=== PATIENT | female | born 1970 | race Caucasian/White ===

== ENCOUNTER → 2022-10-03 15:22 | Outpatient (CLI) | payer OTHER, SELFPAY ==
[2022-10-03 16:22] LABS: COVID19 -Nasal RAPID Negative (Negative)
== END ==
PROVIDERS: PCP Physician Assistant; Visit Provider Surgery
DX: Z20.822 Contact with and (suspected) exposure to COVID-19 (principal); Z01.812 Encounter for preprocedural laboratory examination
CPT/HCPCS: 87635; C9803

== ENCOUNTER 2022-10-04 10:48 | Day surgery (SDC) | payer OTHER, SELFPAY ==
[2022-09-27 13:54] VITALS: BMI 40.3
[2022-10-04] VITALS (9 sets, daily range): BP systolic 100–116; BP diastolic 53–71; PULSE 70–89; RESP 14–22; TEMP 36.1–36.6; O2SAT 91–96; BMI 40.3
[2022-10-04] MEDS: LACTATED RINGERS 1,000 ML 100 ML IV (11:51)
--- NOTE | 2022-10-04 12:20 | PM.HP.1 ---
History of Present Illness History of Present Illness Date Patient Seen: 10/04/22 Time Patient Seen: 12:20 Chief complaint: SDC Narrative: 52-year-old woman with a chronic right breast abscess here for elective right lumpectomy. Please refer to the H& P from August 2022 for further detail. No significant interval changes in health. Patient History Medical History Anxiety Asthma Depression Hypertension Hypertrophic obstructive cardiomyopathy Sinus drainage Suspected sleep apnea Surgical History H/O knee surgery (2020) H/O thumb surgery H/O: History of tonsillectomy Hx of appendectomy (1999) Family & Social History Family History Grandmother Heart disease Stroke Grandmother Breast cancer Social History: household members spouse,children lives independently Yes Tobacco & Substance use: Tobacco type cigarettes Smoking Status Current every day smoker alcohol intake current Substance Use Type does not use Meds Home Medications and Allergies Home Medications Medication Instructions Recorded Confirmed Type furosemide 20 mg tablet 20 mg PO DAILY 09/27/22 10/04/22 History lisinopril 20 mg tablet 20 mg PO DAILY 09/27/22 10/04/22 History metoprolol tartrate 100 mg tablet 100 mg PO DAILY 09/27/22 10/04/22 History trazodone 150 mg tablet 150 mg PO BEDTIME 09/27/22 10/04/22 History Allergies Allergy/AdvReac Type Severity Reaction Status Date / Time No Known Drug Allergies Allergy Unverified 08/29/22 14:09 Exam Vital Signs (past 8 hours): - 10/04/22 11:23 Temperature 97.8 F Pulse Rate 81 Respiratory Rate 16 Blood Pressure 102/67 Pulse Oximetry 96 Oxygen Delivery Method Room Air Oxygen Delivery Method Room Air Narrative Exam Narrative: General adult woman alert oriented no acute distress Chest nonlabored respiration Chest right breast marked with my initials Assessment & Plan Assessment and plan (1) Abscess of right breast: Status: Acute Assessment & Plan narrative: 52-year-old woman with a chronic right breast abscess here for elective incision and drainage. Overview of the operation was again discussed with the patient at the bedside. Operative risks including bleeding, infection, need for further treatment or procedure dependent on pathology findings were discussed. Questions have been answered she is in agreement with this plan Time Spent With Patient Critical Care time: I spent a total of [] minutes of critical care time on this patient's care today; this time is exclusive of procedural time.
[2022-10-04] MEDS: CEFAZOLIN 2 GM/100 ML PREMIX 100 ML IV (12:40)
[2022-10-04] MEDS: BUPIVACAINE 0.5% W/ EPI (PF) 30 ML VIAL INJ (12:50)
--- NOTE | 2022-10-04 12:51 | SUR.OPER ---
Supine on padded OR bed, head on pillow, arms secured on padded arm boards at <90 degrees abduction, legs uncrossed, safety belt at thigh
--- NOTE | 2022-10-04 13:19 | PM.OP.1 ---
Operative Date/Time/Diagnoses Date of procedure: 10/04/22 Time of procedure: 13:19 Pre-op diagnosis: Right breast abscess Post-op diagnosis: same Procedure & Clinicians Procedure: Incision and drainage of right breast abscess Same procedure as scheduled: Yes Indications: 16 years of intermittent right breast abscess status post multiple ultrasound-guided aspiration Surgeon: Kayden Shankar Click Yes if Unassisted: Yes Anesthesia Type: General Operative Notes Findings: Fistula tract connecting the 9 and 3:00 o'clock. positions of the right breast Specimen(s): other (Right breast abscess) Estimated Blood Loss (mL): 5 Procedure in detail: Patient was brought to the operating room placed supine on the table. Bilateral lower extremity compression devices were applied. General anesthesia was induced she was intubated with an LMA. She was prepped and draped in sterile fashion. She received Ancef prior to skin incision. A lacrimal probe was inserted through a punctate opening 9:00 o'clock position on the right breast. The end of the lacrimal probe was beneath the skin at the 3 o'clock position. Incision was made over the end of the lacrimal probe and the subcutaneous tissue was divided. Using blunt dissection the abscess cavity was explored and loculations broken. There was a scant amount of purulent fluid which was sent for culture. A [place] drain was then placed through the incisions and secured to itself. The skin was then reapproximated using interrupted nylon suture at the 3 o'clock position. Patient tolerated procedure well. The wound was irrigated and then covered with sterile dressings patient was extubated and transferred to recovery room in stable condition. Complications: none Post-operative Condition: stable Disposition: same day surgery
--- NOTE | 2022-10-04 14:03 | SUR.PHASEII ---
Spoke to Dr Del Cid in OR#2. Informed that patient continues to complain of significant burning pain to right breast. See new orders
[2022-10-04] MEDS: KETOROLAC 30 MG/ML VIAL IV (14:12)
[2022-10-04] MEDS: ACETAMINOPHEN 325 MG TABLET 975 MG PO (14:15)
[2022-10-04] MEDS: OXYCODONE IR 5 MG TABLET PO (14:15)
== END 2022-10-04 14:51 | disposition home or self-care (01) ==
PROVIDERS: PCP Physician Assistant; Referring Provider Surgery; Visit Provider Surgery
PROC: (CPT 10060; principal; 2022-10-04 12:30)
DX: N61.1 Abscess of the breast and nipple (principal)
CPT/HCPCS: 10060; 19020; 82962; 87070; 87075; 87205; J0690; J1100; J1170; J1885; J2250; J2405; J2704; J3010

== ENCOUNTER 2025-09-11 09:37 | Emergency (ER) | payer OTHER, SELFPAY ==
[2025-09-11] VITALS (17 sets, daily range): BP systolic 100–130; BP diastolic 54–63; PULSE 72–100; RESP 13–24; TEMP 36.7; O2SAT 92–98; BMI 37.6
--- NOTE | 2025-09-11 09:49 | ED_ITS ---
HPI - Neuro Symptoms/Deficit General Chief Complaint: Neuro Symptoms/Deficit Stated Complaint: Sudden vision loss in rt eye Time Seen by Provider: 09/11/25 09:42 History of Present Illness HPI Narrative: Patient is a 55-year-old female history of congestive heart failure, hypertension former smoker quit 01/21/2025 presenting today with sudden onset of right visual loss. She reports that she lost her vision yesterday. She thought it would get better however she woke up this morning and still can not see out of her right eye. She does have ongoing floaters which is normal for her but yesterday she noticed her floaters went away. She has 1 area where she can see out of her right eye but really it is black. No numbness tingling or weakness Related Data Home Medications ?Medication ?Instructions ?Recorded ?Confirmed furosemide 20 mg tablet 20 mg PO DAILY 09/27/2201/19 lisinopril 20 mg tablet 20 mg PO DAILY 09/27/2201/19 metoprolol tartrate 100 mg tablet 100 mg PO DAILY 08/3101/30/23 trazodone 150 mg tablet 150 mg PO BEDTIME 09/27/22 0 01/30/23 Previous Rx's ?Medication ?Instructions ?Recorded acetaminophen 325 mg capsule 650 mg (2 x 325 mg) PO QI D PRN 10/04/22 (Tylenol) pain #60 caps ibuprofen 200 mg tablet 400 mg (2 x 200 mg) PO Q6H # 60 tabs 10/04/22 oxycodone 5 mg tablet 5 mg PO Q6H PRN pain #15 tab s 10/04/22 Allergies Allergy/AdvReac Type Severity Reaction Status Date / Time No Known Drug Allergies Allergy Verified 09/11/25 09:57 Patient History Medical History Asthma Sinus drainage Depression Anxiety Suspected sleep apnea Hypertension Hypertrophic obstructive cardiomyopathy Surgical History Hx of appendectomy (1999) H/O thumb surgery H/O knee surgery (2020) History of tonsillectomy H/O: Family History Grandmother Heart disease Stroke Grandmother Breast cancer Social History marital status: household members: spouse and children lives independently: Yes occupational status: employed Smoking Status: Former smoker alcohol intake: current Exam Initial Vital Signs Initial Vital Signs: Vital Signs Temperature 98.1 F 09/11/25 09:46 Pulse Rate 79 09/11/25 09:46 Respiratory Rate 16 09/11/25 09:46 Blood Pressure 127/59 L 09/11/25 09:46 Pulse Oximetry 96 09/11/25 09:46 Oxygen Delivery Method Room Air 09/11/25 09:46 GENERAL: Alert pleasant well-appearing 55-year-old and in no acute distress. HEENT: Head atraumatic,EOMI, pupils reactive, face symmetric, moist mucous membranes Left eye pressure 23 mmHg, 33mmHg Right eye pressure 37mmHG, 19mmHG 33mmHG CARDIOVASCULAR: Regular rate and rhythm without murmurs, rubs or gallops. RESPIRATORY: Breath sounds equal bilaterally, no wheezes rales or rhonchi. ABDOMEN: Soft, nontender. Normoactive bowel sounds all 4 quadrants. No guarding or rebound. EXTREMITIES: Normal range of motion, no clubbing or edema. Neurovascularly intact NEUROLOGICAL: Alert and oriented x4.Normal gait and speech. Cranial nerves II through XII grossly intact. Good lvbspx-fd-dojq, good mvuu-fe-dwkh, strength equal bilaterally, no dysarthria or aphasia, sensation in tact to soft touch bilaterally, significant decreased vision in right eye no facial droop SKIN: Warm, dry, no laceration, no petechiae, no rashes or lesions. Scores NIH Stroke Scale Level of Conciousness: Alert, keenly responsive Ask month/age: Answers both questions correctly. Open/close eyes, close hand: Performs both tasks correctly Best gaze horizontal: Normal Visual flores: Complete hemianopia Facial palsy: Normal symetrical movement Left arm drift: No drift for full 10 sec Right arm drift: No drift for full 10 sec Left leg drift: No drift for full 5 sec Right leg drift: No drift for full 5 sec Limb ataxia: Absent Sensory on face/arms/legs: Normal, no sensory loss Best language: No aphasia, normal Dysarthria: Normal Extinction or inattention: No abnormality Total NIH Stroke scale score: 2 Course Orders Ordered: ED Orders 09/11/25 09:48 CT angio head and neck Stat CT head/brain wo con Stat EKG-12 Lead Stat 09/11/25 10:00 Complete Blood Count AUTO DIFF Stat Comprehensive Metabolic Panel Stat PTT Partial Thromboplastin Declan Stat Prothrombin Time INR Stat Troponin & CK Cardiac Panel Stat 09/11/25 10:45 MR head/brain wo con Stat 09/11/25 11:15 Urinalysis and Microscopic Stat Discontinued Medications Aspirin (Aspirin Ec 325 Mg Tablet) 325 mg PO NOW ONE Stop: 09/11/25 15:37 Last Admin: 09/11/25 16:57 Dose: 325 mg Documented By: NADIYA Proparacaine HCl (Proparacaine 0.5% Ophth Nina) 1 drops EYE-BOTH NOW ONE Stop: 09/11/25 10:46 Last Admin: 09/11/25 11:01 Dose: 1 drops Documented By: PAT Vital Signs Vital signs: Vital Signs - 8 hr 09/11/25 09:46 09/11/25 10:03 09/11/25 10:12 Temperature 98.1 F Pulse Rate 79 100 H Respiratory Rate 16 24 Blood Pressure 127/59 L 100/54 L Pulse Oximetry 96 Oxygen Delivery Method Room Air Oxygen Flow Rate 09/11/25 10:30 09/11/25 11:00 09/11/25 11:30 Temperature Pulse Rate 73 72 76 Respiratory Rate 20 17 20 Blood Pressure Pulse Oximetry 95 92 Oxygen Delivery Method Oxygen Flow Rate 09/11/25 12:29 09/11/25 12:30 09/11/25 13:00 Temperature Pulse Rate 81 85 80 Respiratory Rate 13 Blood Pressure Pulse Oximetry 93 98 Oxygen Delivery Method Oxygen Flow Rate 09/11/25 13:28 09/11/25 13:28 09/11/25 13:30 Temperature Pulse Rate 80 78 Respiratory Rate 21 Blood Pressure 130/61 Pulse Oximetry 97 97 Oxygen Delivery Method Oxygen Flow Rate 09/11/25 13:31 09/11/25 13:31 09/11/25 14:00 Temperature Pulse Rate 78 76 Respiratory Rate 13 18 Blood Pressure 127/60 Pulse Oximetry 97 97 Oxygen Delivery Method Nasal Cannula Oxygen Flow Rate 2 09/11/25 14:00 09/11/25 14:30 09/11/25 14:30 Temperature Pulse Rate 80 Respiratory Rate 20 Blood Pressure 119/63 118/63 Pulse Oximetry 98 Oxygen Delivery Method Nasal Cannula Oxygen Flow Rate 2 09/11/25 15:00 09/11/25 15:00 09/11/25 15:30 Temperature Pulse Rate 74 75 Respiratory Rate 21 Blood Pressure 109/58 L Pulse Oximetry 97 98 Oxygen Delivery Method Oxygen Flow Rate 09/11/25 15:30 09/11/25 16:00 09/11/25 16:00 Temperature Pulse Rate 79 Respiratory Rate 21 Blood Pressure 113/57 L 117/59 L Pulse Oximetry 97 Oxygen Delivery Method Oxygen Flow Rate MDM - Neuro Symptoms/Deficit Lab Data 09/11/25 10:00 09/11/25 10:00 Labs: Lab Results 09/11/25 09/11/25 09/11/25 Range/Units 10:00 10:04 11:15 WBC 9.2 (4.5-11.0) X10^3/uL RBC 3.14 L (4.0-5.2) X10^6/uL Hgb 8.4 L (12.0-16.0) g/dL Hct 25.5 L (36-46) % MCV 81.2 (80-100) fL MCH 26.7 (26-34) PG MCHC 32.9 (30-36) % RDW 21.7 H (11.6-14.8) % Plt Count 331 (150-400) X10^3/uL Neut % (Auto) 75.5 H (50-75) % Lymph % (Auto) 14.4 L (25-40) % [place] % (Auto) 7.4 (3-14) % Eos % (Auto) 1.8 L (2-4) % Baso % (Auto) 0.9 (0-2) % Neut # (Auto) 7000 (2200-0990) /uL Lymph # (Auto) 1300 (9446-9854) /uL [place] # (Auto) 700 (0-900) /uL Eos # (Auto) 200 (0-450) /uL Baso # (Auto) 100 (0-100) /uL PT 13.0 H (9.4-12.5) SECONDS INR 1.1 (0.9-1.3) APTT 23 L (25.1-36.5) SECONDS Sodium 136 L (137-145) mmol/L Potassium 4.5 (3.4-5.1) mmol/L Chloride 105 (98-107) mmol/L Carbon Dioxide 22 (22-32) mmol/L BUN 26 H (7-17) mg/dL Creatinine 0.87 (0.52-1.04) mg/dL Estimated GFR > 60 (>60) mL/min BUN/Creatinine Ratio 29.9 H (6-22) Glucose 113 H (70-99) mg/dL POC Whole Bld Glucose 106 H (70-99) mg/dL Calcium 8.9 (8.4-10.2) mg/dL Total Bilirubin 0.8 (0.2-1.3) mg/dL AST 25 (14-36) IU/L ALT 15 (<35) IU/L Alkaline Phosphatase 75 (38-126) U/L Total Creatine Kinase < 20 L (30-135) U/L Troponin I 0.061 H (0.01-0.034) ng/mL Total Protein 7.7 (6.3-8.2) g/dL Albumin 4.4 (3.5-5.0) g/dL Globulin 3.3 (1.7-4.1) g/dL Albumin/Globulin Ratio 1.3 (1.0-2.8) Urine Color Yellow Urine Appearance Clear Urine pH 6.0 (4.5-8.0) Ur Specific [place] 1.010 (1.000-1.035) Urine Protein Negative (Negative) Urine Glucose (UA) 1+ H (Negative) g/dL Urine Ketones Negative (NEGATIVE) Urine Occult Blood Negative (Negative) Urine Nitrate Negative (Negative) Urine Bilirubin Negative (NEGATIVE) Urine Urobilinogen 0.2 (0.2) E.U./dL Ur Leukocyte Esterase Negative (NEGATIVE) Urine RBC None seen (0-5/HPF) Urine WBC None seen (0-5/HPF) Ur Squamous Epith Cells 1-5 /hpf (0-5/HPF) Urine Bacteria None seen (None) Ur Culture Indicated? Cult not indicated Vol Urine Centrifuged 10ml (spun) Point of Care Testing Glucose POC 106 Imaging Data CTA - brain/neck: Radiologist's Impression: PROCEDURE: CT ANGIO HEAD AND NECK INDICATIONS: loss of vision in right eye yesterday TECHNIQUE: After the administration of intravenous contrast, 1 mm thick sections acquired from the aortic arch through the [place]. 3-dimensional idmbpxy-ffxeulzak-rmaaiuqzrh (MIP) and/or volume rendering reformats were acquired of the central intracranial vasculature and neck separately. For radiation dose reduction, the following was used: automated exposure control, adjustment of mA and/or kV according to patient size. COMPARISON: [facility], CT, CT LOW DOSE LUNG CA SCREENING, 10/21/2024, 16:00. FINDINGS: Image quality: Diagnostic. Cerebral CT Angiogram: Internal carotid arteries: No acute findings. Intracranial ICA are patent with no significant stenosis. No occlusion. No aneurysm. Anterior cerebral arteries: Unremarkable. No significant stenosis. No occlusion. No aneurysm. Middle cerebral arteries: Unremarkable. No significant stenosis. No occlusion. No aneurysm. Posterior cerebral arteries: Unremarkable. No significant stenosis. No occlusion. No aneurysm. Hypoplastic right posterior communicating artery. Basilar artery: Unremarkable. No significant stenosis. No occlusion. No aneurysm. Vertebral arteries: Unremarkable as visualized. Dural venous sinuses: Unremarkable given phase of enhancement. Other: Arterial phase appearance of the brain parenchyma is unremarkable. Neck CT Angiogram: Internal carotid arteries: Unremarkable. No significant stenosis. No dissection or occlusion. Common carotid arteries: Unremarkable. No significant stenosis. No dissection or occlusion. External carotid arteries: Unremarkable. No occlusion. Vertebral arteries: Unremarkable. No significant stenosis. No dissection or occlusion. Aortic Arch and Mediastinum: Partially visualized aortic arch unremarkable without evidence of aneurysm. Origins of the great vessels unremarkable. Other: Chronic enlargement of a right level 1 axillary lymph node, 1.3 cm, previously enlarged on prior MRI. Nonspecific increased prominence of the mediastinal lymph nodes, unchanged from lung cancer screening CT. Degenerated disc osteophyte complex at C5-6 and C6-7 without significant spinal canal stenosis at these levels. IMPRESSION: No significant intracranial arterial abnormality is seen. No significant abnormality is seen within the arteries of the neck. Chronic prominence of the mediastinal lymph nodes and chronically enlarged right axillary lymph node, which was better evaluated on dedicated breast MRI from November 2024. Recommend correlation with laboratory studies for chronic autoimmune or hematopoietic disorder without visualized findings of malignancy within the bilateral lung apices or in the neck. Any quantitative measurements of stenosis were performed using NASCET criteria. Dictated by: Carlos Manuel Lopez M.D. on 09/11/2025 at 9:22 CT scan - head: Radiologist's Impression: PROCEDURE: CT HEAD/BRAIN WO CON INDICATIONS: loss of vision in right eye yesterday TECHNIQUE: Noncontrast 4.5 mm thick angled axial sections acquired from the foramen magnum to the vertex, with coronal and sagittal reformats. For radiation dose reduction, the following was used: automated exposure control, adjustment of mA and/or kV according to patient size. COMPARISON: None. FINDINGS: Image quality: Diagnostic. CSF spaces: Basal cisterns are patent. No extra-axial fluid collections. Ventricles are normal in size and shape. Brain: No midline shift. No intracranial mass effect or hemorrhage. Nugent- white matter interface is normal. Skull and face: Calvarium and visualized facial bones are intact, without suspicious lesions. Sinuses: Visualized sinuses and mastoids are clear. IMPRESSION: No acute intracranial pathology. Dictated by: Carlos Manuel Lopez M.D. on 09/11/2025 at 9:15 Approved by: Carlos Manuel Lopez M.D. on 09/11/2025 at 9:16 MR brain: Radiologist's Impression: PROCEDURE: MR HEAD/BRAIN WO CON INDICATIONS: right eye vision loss TECHNIQUE: Non-contrast axial T1 spin echo, axial T2 fast spin echo, sagittal and axial FLAIR, coronal T2 fast spin echo, axial gradient echo, axial diffusion and ADC through the brain. COMPARISON: None. FINDINGS: Image quality: Excellent. CSF spaces: Ventricles appear symmetric in size and shape. Basal cisterns are patent. No extra-axial fluid collections. Brain: No intracranial bleeds or mass effects. There are periventricular and deep white matter chronic small vessel ischemic changes. Brainstem appears normal. Small focus of restricted diffusion within the right paramedian pontine nugent matter. No chronic ischemic insults. Normal intravascular flow voids are present. Skull and face: Calvarial bone marrow is normal in signal. Orbits are normal. Sinuses: Sinuses and mastoids are clear. IMPRESSION: 1. Small lacunar infarct within the right paramedian pontine nugent matter. 2. Chronic, mild, scattered microvascular ischemic changes in the supratentorial white matter. 3. Otherwise no acute intracranial abnormality or other finding of supratentorial stroke to correlate with patient's onset of vision loss. Dictated by: Carlos Manuel Lopez M.D. on 09/11/2025 at 11:41 ECG Data Attestation: I personally reviewed and interpreted this ECG as follows: Prior ECG tracings: not available for review Interpretation: Normal sinus rhythm rate 80 MI interval 250 QRS [address] changes MDM Narrative Medical decision making narrative: MDM CC: Right visual loss Complicating co-morbidities: Congestive heart failures former smoker hypertension hyperlipidemia Data collected from: Patient and has been Medical records reviewed: Minimal records only had colonoscopy September 2022 Differential considered: CVA, retinal artery occlusion, retinal detachment Exam documented above, pertinent findings include: NIH stroke scale of 2 she has complete visual loss of the right eye. Lab Test results independently reviewed as above. Pertinent findings: CBC CBC shows anemia with a hemoglobin 8.4 hematocrit 255 platelets are 331 CMP no electrolyte abnormalities no PAUL Bilirubin liver enzymes within normal limits Troponin negative Independently reviewed EKG as above Sinus rhythm no ischemia Imaging studies independently reviewed: Head CT noncontrast no intracranial hemorrhage CT head and neck angio no large vessel occlusion MR small lacunar infarct Consultations: 1536 Dr. Guadalupe neurolgy, reviewed images updated patient's symptoms test results does not think small lacunar infarct is related to right visual loss 1555 opthomology Treatments: ASA Re-evaluations: Patient remained stable Discussion: Patient 55-year-old female who presents today with loss of vision in her right eye. It happened yesterday she does seem to have some vision in her right upper lateral quadrant but almost a complete hemianopsia. NIH stroke scale is 2. Concern for CVA versus Ophthalmology issue. Bedside ultrasound done by myself does not show retinal detachment or vitreous humor detachment. Pressure in both eyes is relatively normal. But she does have obvious vision loss in the right eye. MRI does show a small lacunar stroke but is unlikely the cause of her acute right visual loss. I think this is probably old nonacute. Concern for a central retinal artery or vein occlusion. Spoke with both Neurology and Ophthalmology. Neurology did not think visual loss was related to stroke ophthalmology recommended patient be transferred to [facility] for throat I evaluation. Unlikely to get an Ophthalmology evaluation locally tomorrow. Discussion with patient about being transferred down to [facility] she understands and agrees. We would like to go by ambulance. Critical Care Time Critical Care Time Critical Care Time: Yes Total Critical Care Time: 35 Attestation: The high probability of a clinically significant, sudden or life threatening deterioration of the [cardiovascular] system(s) required my full and direct attention, intervention and personal management. The aggregate critical care time was 35 minutes. This time is in addition to time spent performing reported procedures but includes the following: [x] Data Review and interpretation [x] Patient assessment and monitoring of vital signs [x] Documentation [x] Medication orders and management Discharge Plan Departure Patient Disposition: [facility] Clinical Impression: Visual loss Prescriptions: No Action furosemide 20 mg Tablet 20 mg PO DAILY metoprolol tartrate 100 mg Tablet 100 mg PO DAILY lisinopril 20 mg Tablet 20 mg PO DAILY trazodone 150 mg Tablet 150 mg PO BEDTIME oxycodone 5 mg tablet 5 mg PO Q6H PRN (Reason: pain) Qty: 15 0RF ibuprofen 200 mg tablet 400 mg PO Q6H Qty: 60 0RF acetaminophen [Tylenol] 325 mg capsule 650 mg PO QID PRN (Reason: pain) Qty: 60 0RF Referrals: Irais Youssef PA-C [Primary Care Provider, Internal Medicine]
--- NOTE | 2025-09-11 09:57 | EKG_ITS ---
[place] [id number] [place] [id number] Test Date: 2025-09-11 Pat Name: Stacey Smith Department: Room: Gender: Female Building Services Supervisor: LYRIC : 1970 Requested By: Order Number: [id number] Reading MD: Ra Will MD Measurements Intervals Virgie Rate: 80 P: 53 ND: 250 QRS: 13 QRSD: 100 T: 55 QT: 402 QTc: 463 Interpretive Statements Sinus rhythm with 1st degree AV block Possible Left atrial enlargement Minimal voltage criteria for LVH, may be normal variant ( Xavier product ) Electronically Signed On 09-11-2025 12:03:48 PST by Ra Will MD
[2025-09-11 10:14] LABS: Add Manual Diff / Slide Review NO; Hematocrit 25.5 % (36-46); Hemoglobin 8.4 g/dL (12.0-16.0); Lymphocytes Absolute Auto 1300 /uL (1100-4500); Mean Corpuscular HGB Conc 32.9 % (30-36); Mean Corpuscular Hemoglobin 26.7 PG (26-34); Mean Corpuscular Volume 81.2 fL (80-100); Platelet Count 331 X10^3/uL (150-400)
[2025-09-11 10:18] LABS: INR 1.1 (0.9-1.3); Prothrombin Time 13.0 SECONDS (9.4-12.5)
[2025-09-11 10:20] LABS: PTT Partial Thromboplastin Tim 23 SECONDS (25.1-36.5)
[2025-09-11 10:22] LABS: Alanine Aminotransferase 15 IU/L (<35); Albumin 4.4 g/dL (3.5-5.0); Albumin Globulin Ratio 1.3 (1.0-2.8); Alkaline Phosphatase 75 U/L (38-126); Blood Urea Nitrogen 26 mg/dL (7-17); Calcium 8.9 mg/dL (8.4-10.2); Carbon Dioxide 22 mmol/L (22-32); Chloride 105 mmol/L (98-107); Creatine Kinase < 20 U/L (30-135); Estimated Glomerular Filt Rate > 60 mL/min (>60); Globulin 3.3 g/dL (1.7-4.1); Glucose 113 mg/dL (70-99); HEMOLYSIS < 15 (0-50); Potassium 4.5 mmol/L (3.4-5.1); Sodium 136 mmol/L (137-145); Total Protein 7.7 g/dL (6.3-8.2)
[2025-09-11 10:33] LABS: Troponin I 0.061 ng/mL (0.01-0.034)
--- NOTE | 2025-09-11 10:45 | DI.MRI.S_ITS ---
PROCEDURE: MR HEAD/BRAIN WO CON INDICATIONS: right eye vision loss TECHNIQUE: Non-contrast axial T1 spin echo, axial T2 fast spin echo, sagittal and axial FLAIR, coronal T2 fast spin echo, axial gradient echo, axial diffusion and ADC through the brain. COMPARISON: None. FINDINGS: Image quality: Excellent. CSF spaces: Ventricles appear symmetric in size and shape. Basal cisterns are patent. No extra-axial fluid collections. Brain: No intracranial bleeds or mass effects. There are periventricular and deep white matter chronic small vessel ischemic changes. Brainstem appears normal. Small focus of restricted diffusion within the right paramedian pontine vazquez matter. No chronic ischemic insults. Normal intravascular flow voids are present. Skull and face: Calvarial bone marrow is normal in signal. Orbits are normal. Sinuses: Sinuses and mastoids are clear. IMPRESSION: 1. Small lacunar infarct within the right paramedian pontine vazquez matter. 2. Chronic, mild, scattered microvascular ischemic changes in the supratentorial white matter. 3. Otherwise no acute intracranial abnormality or other finding of supratentorial stroke to correlate with patient's onset of vision loss. Dictated by: Carlos Manuel Lopez M.D. on 09/11/2025 at 11:41 Approved by: Carlos Manuel Lopez M.D. on 09/11/2025 at 11:45
[2025-09-11] MEDS: PROPARACAINE 0.5% OPHTH SOL 1 DROPS EYE-BOTH (11:01)
[2025-09-11 11:42] LABS: Appearance Urine UA CLEAR; Bilirubin Urine UA NEGATIVE (NEGATIVE); Color Urine UA YELLOW; Glucose Urine UA 1+ g/dL (Negative); Ketones Urine UA NEGATIVE (NEGATIVE); Leukocyte Esterase Urine UA NEGATIVE (NEGATIVE); Nitrite Urine UA NEGATIVE (Negative); Occult Blood Urine UA NEGATIVE (Negative); Protein Urine UA NEGATIVE (Negative); Specific Gravity Urine UA 1.010 (1.000-1.035); Urobilinogen Urine UA 0.2 E.U./dL (0.2)
[2025-09-11 11:49] LABS: pH Urine UA 6.0 (4.5-8.0)
[2025-09-11 11:56] LABS: Culture Indicated Urine Cult Not Indicated
[2025-09-11] MEDS: ASPIRIN EC 325 MG TABLET PO (16:57)
== END 2025-09-11 17:04 | disposition short-term general hospital (02) ==
PROVIDERS: Emergency Provider Emergency Medicine; PCP Physician Assistant
DX: H53.131 Sudden visual loss, right eye (principal); Z87.891 Personal history of nicotine dependence; I10 Essential (primary) hypertension; F32.A Depression, unspecified
CPT/HCPCS: 36415; 70450; 70496; 70498; 70551; 80053; 81001; 82550; 82962; 84484; 85025; 85610; 85730; 93005; 99284; 99285; Q9967